=== PATIENT | female | born 1965 | race Caucasian/White ===

== ENCOUNTER 2019-04-19 21:34 | Emergency (ER) | payer OTHER ==
[~2019-04-19] VITALS: Ht 154.9 cm; Wt 72.6 kg
[2019-04-19 21:55] VITALS: Ht 154.9 cm; Wt 72.6 kg
[2019-04-20 00:05] VITALS: BP 140/81
== END 2019-04-20 00:05 | disposition home or self-care (01) ==
LOC: ED 21:34
DX: H10.9 Unspecified conjunctivitis (principal); Z88.0 Allergy status to penicillin